=== PATIENT | male | born 1995 | race Caucasian/White ===

== ENCOUNTER 2020-01-20 18:39 | Emergency (ER) | payer MEDICAID ==
--- NOTE | 2020-01-20 20:14 | NUR ---
CALLED FOR TRIAGE. NO ANSWER
--- NOTE | 2020-01-20 20:32 | NUR ---
CALLED FOR TRIAGE , NO ANSWER
--- NOTE | 2020-01-20 21:08 | NUR ---
CALLED FOR TRIAGE , NO ANSWER
== END 2020-01-20 22:40 | disposition left against medical advice (07) ==
LOC: ER 18:49
DX: Z02.89 Encounter for other administrative examinations (principal); Z53.21 Procedure and treatment not carried out due to patient leaving prior to being seen by health care provider
CPT/HCPCS: J7030; J7040